=== PATIENT | female | born 1960 | race Asian ===

== ENCOUNTER 2025-04-15 10:31 | Emergency (ER) | payer MEDICARE, OTHER ==
[~2025-04-15] VITALS: Ht 154.9 cm; Wt 54.5 kg
[2025-04-15] MEDS ORDERED: CARV3 PO (10:48)
[2025-04-15] MEDS ORDERED: NIFE-141 PO (10:48)
[2025-04-15] MEDS ORDERED: LEVO88TA4 PO (10:48)
[2025-04-15] MEDS ORDERED: LIDO1ADH72 TD (10:48)
[2025-04-15] MEDS ORDERED: calcitriol PO (10:48)
[2025-04-15 11:09] VITALS: TEMP 98.005280
[2025-04-15] MEDS ORDERED: TRAM50TA5 PO (12:32)
[2025-04-15 12:50] VITALS: BP 131/75; PULSE 68; RESP 18; O2SAT 99
== END 2025-04-15 13:02 | disposition home or self-care (01) ==
LOC: EMS 10:34
DX: G56.01 Carpal tunnel syndrome, right upper limb (principal); M19.031 Primary osteoarthritis, right wrist; I10 Essential (primary) hypertension; E03.9 Hypothyroidism, unspecified; Z90.89 Acquired absence of other organs; Z79.899 Other long term (current) drug therapy
CPT/HCPCS: 99283; Z7502